=== PATIENT | female | born 1960 | race Two or more races ===

== ENCOUNTER 2021-03-02 12:45 | Inpatient (IN) | payer OTHER ==
[~2021-03-02] VITALS: Ht 157.5 cm; Wt 63.5 kg
[2021-03-02] MEDS ORDERED: ENALAPRIL MALEA10 MG PO (14:35)
== END 2021-03-31 13:28 | disposition home or self-care (01) | DRG 741 ==
LOC: SURH 03-08 07:00 → O/R 03-29 09:26 → SURH 03-29 12:45 → SURG-SUITE 03-29 16:22
PROVIDERS: ADMIT Specialist; ATTEND Specialist
PROC: 0UT24ZZ Resection of Bilateral Ovaries, Percutaneous Endoscopic Approach (ICD-10-PCS; 2021-03-29)
PROC: 0UT74ZZ Resection of Bilateral Fallopian Tubes, Percutaneous Endoscopic Approach (ICD-10-PCS; 2021-03-29)
PROC: 07BC4ZZ Excision of Pelvis Lymphatic, Percutaneous Endoscopic Approach (ICD-10-PCS; 2021-03-29)
PROC: 0UT94ZZ Resection of Uterus, Percutaneous Endoscopic Approach (ICD-10-PCS; principal; 2021-03-29 16:00)
DX: C54.1 Malignant neoplasm of endometrium (principal); N80.0 Endometriosis of uterus; D25.1 Intramural leiomyoma of uterus